=== PATIENT | male | born 1960 | race Caucasian/White ===

== ENCOUNTER 2016-04-12 11:14 | Outpatient (CLI) ==
[2016-04-12 11:28] LABS: BASOPHILS # (AUTO) 0.1 K/uL (0-0.2); BASOPHILS % (AUTO) 0.8 % (0.0-3.0); EOSINOPHILS # (AUTO) 0.1 K/ul (0.0-0.7); EOSINOPHILS % (AUTO) 1.5 % (0.0-7.0); HEMATOCRIT 44.6 % (42.0-52.0); HEMOGLOBIN 15.6 g/dl (14.0-18.0); IMMATURE GRANULOCYTE % (AUTO) 0.3 % (0.0-5.0); LYMPHOCYTES # (AUTO) 2.4 K/uL (0.60-3.4); LYMPHOCYTES % (AUTO) 27.3 (10.0-50.0); MEAN CORPUSCULAR VOLUME 82.9 fl (80.0-94.0); MONOCYTES # (AUTO) 0.8 K/uL (0.4-2.0); MONOCYTES % (AUTO) 9.3 (0-10); NEUTROPHILS # (AUTO) 5.3 K/ul (2.0-6.9); NEUTROPHILS % (AUTO) 60.8; PLATELET COUNT 370 10^3/uL (140-440); RED BLOOD COUNT 5.38 10^6/ul (4.70-6.10); WHITE BLOOD COUNT 8.72 K/ul (4.2-10.2)
[2016-04-12 11:50] LABS: ALBUMIN 3.7 g/dL (3.4-5.0); ALBUMIN/GLOBULIN RATIO 0.88; ANION GAP 13.3; BILIRUBIN,TOTAL 0.27 mg/dL (0.00-1.20); CALCIUM 9.7 mg/dL (8.2-10.2); CHOL/HDL RATIO 6.4 (4.5-6.4); POTASSIUM 4.3 mmol/L (3.5-5.1); TOTAL PROTEIN 7.9 g/dL (6.4-8.2)
--- NOTE | 2016-04-12 11:54 | DI ---
EXAM: Two views of the chest. History: Elevated blood pressure. Findings: Heart size is normal. No focal consolidation. No appreciable pleural fluid and no pneum othorax. No acute osseous abnormalities. Impression: No acute cardiopulmonary process.
== END 2016-04-12 11:15 | disposition home or self-care (01) ==
LOC: LAB 11:14
PROVIDERS: ATTEND Nurse Practitioner Family
DX: R73.09 Other abnormal glucose (principal); J40 Bronchitis, not specified as acute or chronic; R03.0 Elevated blood-pressure reading, without diagnosis of hypertension; R05 Cough
CPT/HCPCS: 36415; 80053; 80061; 83036; 85025; 93005; 93010

== ENCOUNTER 2016-04-18 06:20 | Outpatient (CLI) ==
--- NOTE | 2016-04-18 08:45 | STRESSECHO ---
Date of Test: 04/18/16 Reason for Exam: ABNORMAL EKG Ordering Physician: [facility] Current Medications: METFORMIN, ANTIBIOTIC Resting EKG: SINUS RHYTHM/NO ACUTE CHANGES Target Heart Rate: 141/166 STAGE MPH/GRADE HEART RATE BLOOD PRESSURE RHYTHM S-T SEGMENT +/- UP DOWN SYMPTOMS,COMMENTS At Rest 90 118/76 SR X NONE 1 1.7/10% 144 138/88 SR X NONE 2 2.5/12% 3 3.4/14% 4 4.2/16% 5 5.0/18% Immediately after 151 SR X MD STOPPED TEST Durations of Exercise: 3:20 Maximum Heart Rate Reached: 151 3 MIN POST EXERCISE--HR 105, BP 140/70, SINUS RHYTHM, +/- INTERPRETATION:98% OXYGEN SATURATION WITH EXERCISE ON ROOM AIR 1. INCONCLUSIVE PATIENT HAS ABNORMAL BASELINE EKG 2. NO CHEST PAIN OR CHEST DISCOMFORT 3. NO ARRHYTHMIAS 4. BLOOD PRESSURE RESPONSE ADEQUATE LEFT VENTRICULAR CONTRACTILITY--RESTING, MILDLY HYPOKINETIC LEFT VENTRICLE-- POST EXERCISE NORMAL LEFT VENTRICULAR CONTRACTILITY RECOMMEND: REGULAR 2 " D" "M" MODE ECHO AND STRESS ECHO SESTAMIBI (SCHEDULED FOR 04/21/16 @ 0645) CEDRICK
--- NOTE | 2016-04-19 13:01 | ECHOSTRESS ---
Date of Exam: 04/18/16 Ordering Physician: [facility] Reason for Echo: ABNORMAL EKG, DM2, DOBUTAMINE STRESS--INCONCLUSIVE M-Mode Normal Adult Results LV Dimensions Normal Adult Results AoV Opening excursions >1.6 LVEDD-base- 3.5-5.8 Ao root dimensions 2.0-3.7 LVESD-base- 3.1-4.6 L. Atrium dimensions 1.9-3.8 Post. Wall thickness 0.8-1.1 IV septum (thickness) 0.7-1.2 Post. Wall excursion 0.72-1.3 Septal motion Systolic motion R. Ventricular cavity 1.5-2.0 LVEF 60% Paradoxical septal wall motion 2-D: HYPOKINETIC SEPTAL WALL AT REST/NORMAL LEFT VENTRICLE CONTRACTILITY WITH DOBUTAMINE INFUSION M-MODE: MV: AV: TV: PV: CHAMBER SIZE: WALL MOTION: HYPOKINETIC SEPTAL WALL AT REST/NORMAL LEFT VENTRICLE CONTRACTILITY WITH DOBUTAMINE INFUSION PERICARDIUM: INTERPRETATION: 1. HYPOKINETIC SEPTAL WALL AT REST/NORMAL LEFT VENTRICLE CONTRACTILITY WITH DOBUTAMINE INFUSION MTDD
== END 2016-04-18 06:21 | disposition home or self-care (01) ==
LOC: CAR 06:20
PROVIDERS: ATTEND Nurse Practitioner Family
DX: E11.65 Type 2 diabetes mellitus with hyperglycemia (principal)

== ENCOUNTER 2016-04-21 06:39 | Outpatient (CLI) ==
--- NOTE | 2016-04-21 11:30 | NM ---
Cardiac Stress Test HISTORY: Abnormal EKG with anterior septal wall myocardial infarction and ischemia, sinus tachycard ia. COMPARISON: None of this type. TECHNIQUE: Resting: The patient was injected with 13.1 mCi of 99m technetium Sestamibi (Cardiolite) intravenou sly after which a "resting" SPECT study of the heart was performed. Stress: The patient was stressed using a Raymundo protocol and at the appropriate time injected with 3 3.6 mCi of 99m technetium Sestamibi (Cardiolite) after which a "stress" SPECT study of the heart was performed. Gated images of the heart were also obtained to assess wall motion and calculate ejectio n fraction. For details of the stress protocol employed, reference is made to the separate report o f the performing physician. FINDINGS: The stress perfusion images demonstrate decreased activity in the distal anteroseptal wal l extending to the apex. The resting perfusion images demonstrate no evidence of significant redist ribution/ischemia. The left ventricular ejection fraction (LVEF) is 59 %. The left ventricular wall motion was not evaluated. IMPRESSION: 1. Left ventricular myocardial perfusion demonstrates a region of myocardial infarction in the dist al anteroseptal wall extending to the apex. There is no additional evidence of ischemia. 2. The left ventricular ejection fraction (LVEF) is 59 %. 3. The left ventricular wall motion was not evaluated.
--- NOTE | 2016-04-24 10:09 | ECHO2D ---
Date of Exam: 04/21/16 Ordering Physician: MELVIN LUX/[place] Reason for Echo: ABNORMAL EKG, DM M-Mode Normal Adult Results LV Dimensions Normal Adult Results AoV Opening excursions >1.6 >1.6 LVEDD-base- 3.5-5.8 4.6 Ao root dimensions 2.0-3.7 3.5 LVESD-base- 3.1-4.6 L. Atrium dimensions 1.9-3.8 3.6 Post. Wall thickness 0.8-1.1 1.2 IV septum (thickness) 0.7-1.2 1.3 Post. Wall excursion 0.72-1.3 NORMAL Septal motion NORMAL Systolic motion R. Ventricular cavity 1.5-2.0 NORMAL LVEF 60% 52% Paradoxical septal wall motion NORMAL 2-D : NORMAL LEFT VENTRICULAR CONTRACTILITY--NORMAL VALVES--NO EFFUSION, NO THROMBUS-NORMAL LEFT VENTRICLE/LEFT ATRIAL SIZE M-MODE: MV: NORMAL AV: NORMAL TV: NORMAL PV: CHAMBER SIZE: NORMAL WALL MOTION: NORMAL PERICARDIUM: NORMAL INTERPRETATION: 1. LEFT VENTRICULAR HYPERTROPHY/STIFF LEFT VENTRICLE 2. NORMAL LEFT VENTRICULAR CONTRACTILITY 3. NORMAL VALVES MTDD
--- NOTE | 2016-04-24 10:18 | STECHOSEST ---
Date of Test: 04/21/16 Reason for Exam: INCONCLUSIVE STRESS TEST, ABNORMAL EKG Ordering Physician: MELVIN LUX/JULIO Current Medications: METFORMIN, ANTIBIOTIC Physical Findings: S1, S2, NO S3 Resting EKG: SINUS RHYTHM/NO ACUTE CHANGES Target Heart Rate: 141/166 STAGE MPH/GRADE HEART RATE BLOOD PRESSURE RHYTHM S-T SEGMENT UP DOWN SYMPTOMS, COMMENTS At Rest 87 116/72 SR X NONE 1 1.7/10% 139 186/100 SR X NONE 2 2.5/12% 3 3.4/14% 4 4.2/16% 5 5.0/18% Immediately after 150 206/102 SR X FATIGUE Total Time: 4:39 Maximum Heart Rate Reached: 150 Reason for Termination: FATIGUE 5 MIN POST EXERCISE, HR--92, BP-140/84, SR INTERPRETATION: 99% OXYGEN SATURATION ON ROOM AIR WITH EXERCISE/97% AT REST 1. INCONCLUSIVE FOR ISCHEMIC ST-T WAVE CHANGES 2. NO CHEST PAIN OR CHEST DISCOMFORT 3. NO ARRHYTHMIAS 4. BLOOD PRESSURE RESPONSE: HYPERTENSION WITH EXERCISE LEFT VENTRICULAR CONTRACTILITY--NORMAL RESTING AND POST EXERCISE BY ECHO MTDD
--- NOTE | 2016-04-24 10:21 | ECHOSTRESS ---
Date of Exam: 04/21/16 Ordering Physician: MELVIN LUX Reason for Echo: INCONCLUSIVE STRESS TEST M-Mode Normal Adult Results LV Dimensions Normal Adult Results AoV Opening excursions >1.6 LVEDD-base- 3.5-5.8 Ao root dimensions 2.0-3.7 LVESD-base- 3.1-4.6 L. Atrium dimensions 1.9-3.8 Post. Wall thickness 0.8-1.1 IV septum (thickness) 0.7-1.2 Post. Wall excursion 0.72-1.3 Septal motion Systolic motion R. Ventricular cavity 1.5-2.0 LVEF 60% Paradoxical septal wall motion 2-D: NORMAL LEFT VENTRICULAR CONTRACTILITY--RESTING AND POST EXERCISE M-MODE: MV: AV: TV: PV: CHAMBER SIZE: WALL MOTION: NORMAL LEFT VENTRICULAR CONTRACTILITY--RESTING AND POST EXERCISE PERICARDIUM: INTERPRETATION: 1.NORMAL LEFT VENTRICULAR CONTRACTILITY--RESTING AND POST EXERCISE MTDD
== END 2016-04-21 06:40 | disposition home or self-care (01) ==
LOC: CAR 06:39
PROVIDERS: ATTEND Internal Medicine
DX: I21.09 ST elevation (STEMI) myocardial infarction involving other coronary artery of anterior wall (principal); R00.0 Tachycardia, unspecified; E11.9 Type 2 diabetes mellitus without complications; I99.8 Other disorder of circulatory system; R94.31 Abnormal electrocardiogram [ECG] [EKG]; R94.39 Abnormal result of other cardiovascular function study

== ENCOUNTER 2016-05-25 13:54 | Outpatient (CLI) ==
[2016-05-25 15:17] VITALS: BMI 35.9
== END 2016-05-25 13:55 | disposition home or self-care (01) ==
LOC: DIETCN 13:54
PROVIDERS: ATTEND Nurse Practitioner Family
DX: E11.9 Type 2 diabetes mellitus without complications (principal)
CPT/HCPCS: 97802

== ENCOUNTER 2016-08-09 06:22 | Outpatient (CLI) ==
[2016-08-09 06:50] LABS: ALBUMIN 3.9 g/dL (3.4-5.0); ANION GAP 14.2; BILIRUBIN,TOTAL 0.5 mg/dL (0.00-1.20); BUN/CREATININE RATIO 16.49; CHOL/HDL RATIO 4.6 (4.5-6.4); CREATININE 0.97 mg/dL (0.60-1.10); POTASSIUM 4.2 mmol/L (3.5-5.1); TOTAL PROTEIN 7.8 g/dL (6.4-8.2)
== END 2016-08-09 06:23 | disposition home or self-care (01) ==
LOC: LAB 06:22
PROVIDERS: ATTEND Nurse Practitioner Family
DX: E78.5 Hyperlipidemia, unspecified (principal); E11.9 Type 2 diabetes mellitus without complications
CPT/HCPCS: 36415; 80053; 80061; 83036

== ENCOUNTER 2016-12-08 12:34 | Outpatient (CLI) ==
[2016-12-08 12:50] LABS: BASOPHILS # (AUTO) 0.1 K/uL (0-0.2); BASOPHILS % (AUTO) 0.9 % (0.0-3.0); EOSINOPHILS # (AUTO) 0.2 K/ul (0.0-0.7); EOSINOPHILS % (AUTO) 2.5 % (0.0-7.0); HEMATOCRIT 41.2 % (42.0-52.0); HEMOGLOBIN 14.5 g/dl (14.0-18.0); IMMATURE GRANULOCYTE % (AUTO) 0.2 % (0.0-5.0); LYMPHOCYTES # (AUTO) 2.1 K/uL (0.60-3.4); LYMPHOCYTES % (AUTO) 23.5 (10.0-50.0); MEAN CORPUSCULAR HEMOGLOBIN 29.2 pg (27.0-31.0); MEAN CORPUSCULAR HGB CONC 35.2 (31.8-35.4); MEAN CORPUSCULAR VOLUME 82.9 fl (80.0-94.0); MONOCYTES # (AUTO) 0.9 K/uL (0.4-2.0); MONOCYTES % (AUTO) 10.2 (0-10); NEUTROPHILS # (AUTO) 5.7 K/ul (2.0-6.9); NEUTROPHILS % (AUTO) 62.7; PLATELET COUNT 358 10^3/uL (140-440); RED BLOOD COUNT 4.97 10^6/ul (4.70-6.10); WHITE BLOOD COUNT 9.11 K/ul (4.2-10.2)
[2016-12-08 13:02] LABS: ALBUMIN 3.9 g/dL (3.4-5.0); ALBUMIN/GLOBULIN RATIO 1.05; ANION GAP 21.3; BILIRUBIN,TOTAL 0.44 mg/dL (0.00-1.20); BUN/CREATININE RATIO 17.72; CALCIUM 9.1 mg/dL (8.2-10.2); CREATININE 0.79 mg/dL (0.60-1.10); POTASSIUM 4.3 mmol/L (3.5-5.1); TOTAL PROTEIN 7.6 g/dL (6.4-8.2)
== END 2016-12-08 12:35 | disposition home or self-care (01) ==
LOC: LAB 12:34
PROVIDERS: ATTEND Nurse Practitioner Family
DX: E11.9 Type 2 diabetes mellitus without complications (principal); E78.5 Hyperlipidemia, unspecified; I10 Essential (primary) hypertension
CPT/HCPCS: 36415; 80053; 80061; 83036; 85025

== ENCOUNTER 2017-07-05 12:53 | Outpatient (CLI) | END 2017-07-05 12:54 | disposition home or self-care (01) | LOC: FCC-LAB 12:53 | PROVIDERS: ATTEND Nurse Practitioner Family | DX: E11.9 Type 2 diabetes mellitus without complications (principal); I10 Essential (primary) hypertension; E78.5 Hyperlipidemia, unspecified; Z12.5 Encounter for screening for malignant neoplasm of prostate | CPT/HCPCS: 36415; 80053; 80061; 83037; 85025 ==

== ENCOUNTER 2017-10-12 09:52 | Outpatient (CLI) | END 2017-10-12 09:53 | disposition home or self-care (01) | LOC: FCC-LAB 09:52 | PROVIDERS: ATTEND Nurse Practitioner Family | DX: E11.9 Type 2 diabetes mellitus without complications (principal); I10 Essential (primary) hypertension; E78.5 Hyperlipidemia, unspecified | CPT/HCPCS: 36415; 80053; 80061; 83036; 85025 ==

== ENCOUNTER 2017-10-16 09:23 | Outpatient (CLI) | END 2017-10-16 09:24 | disposition home or self-care (01) | LOC: FCC-LAB 09:23 | PROVIDERS: ATTEND Family Medicine | DX: E11.9 Type 2 diabetes mellitus without complications (principal) | CPT/HCPCS: 82043 ==

== ENCOUNTER 2018-02-06 08:22 | Emergency (ER) ==
[2018-02-06] MEDS ORDERED: ASPIRIN CHEWABLE PO STA (08:26)
[2018-02-06] MEDS ORDERED: ZOFRAN 4 MG/2 ML IVP STA (08:27)
[2018-02-06] MEDS ORDERED: MORPHINE 2 MG/ML SYRINGE IVP STA (08:27)
[2018-02-06 08:36] VITALS: BP 143/102; TEMP 98.3; BMI 37.1
--- NOTE | 2018-02-06 08:43 | DI ---
EXAM: Single view of the chest. History: Chest pain. Comparison: Chest radiograph 04/12/2016 Findings: Heart size is normal. No focal consolidation. No appreciable pleural fluid and no pneumo thorax. No acute osseous abnormalities. Impression: No acute cardiopulmonary process
--- NOTE | 2018-02-06 08:43 | ED.PDOC ---
General ED Provider: Dr. CARLENE ROJO Chief Complaint: Chest Pain Stated Complaint: acute chest pain Time Seen by Physician: 08:24 (seen with Ash mahoney, c/o left shoulder 10/ 10 pain) Information Source: Patient Exam Limitations: No limitations Primary Care Provider: GUSTAVO TORRES Nursing and Triage Documentation Reviewed and Agree: Yes Does patient meet sepsis criteria?: No System Inflammatory Response Syndrome: Not Applicable Sepsis Protocol: For patient's 13 years and over: Temp is 96.8 and below OR 101 and greater Pulse >90 BPM Resp >20/minute Acutely Altered Mental Status Are patient's symptoms suggestive of a new infection, such as: -Pneumonia -Skin, Soft Tissue -Endocarditis -UTI -Bone, Joint Infection -Implantable Device -Acute Abdominal Infection -Wound Infection -Meningitis -Blood Stream Catheter Infection -Unknown Cardiovascular Complaint Exam - Chest Pain Complaint/Exam Onset: Sudden (THIS PAIN DOES NOT RADIATE BETWEEN SHOULDERS) Duration: 3 am but about 08:30 am became 10/10 at rest Symptoms Are: Still present Timing: Constant Length of Chest Pain Episodes: 5 hr Initial Severity: Moderate Current Severity: Severe Location: Reports: Left anterior Pain Radiates: Reports: Left shoulder, Neck Character: Reports: Tightness Aggravating: Reports: None Alleviating: Reports: Oxygen (morphine , asprin (3 given) 1 was taken at home ) Associated Signs and Symptoms: Denies: Diaphoresis, Nausea, Vomiting, Fever, Palpitations, Cough, Hemoptysis, Back pain, Abdominal pain, Dizziness, Short of air, Calf pain, Calf swelling Related History: Reports: Similar episode (NH) Related Surgical History: Reports: None History of Healthcare-Acquired Pneumonia: Reports: No AMI/ACS Risk Factors: Reports: Sedentary, Diabetes, Obesity, Hypertension, Dyslipidemia TAD Risk Factors: Reports: Hypertension Pulmonary Embolism Risk Factors: Reports: None Prior Care for this Complaint: Yes Recent Stress Test: No Recent Echo/LV Function: No JVD Present: No Subcutaneous Emphysema Present: No Diminshed Breath Sounds: No Reproducible Chest Wall Pain: No Bilateral Pulses Present: Yes Unequal Pulses Noted: No Chest Picture: 1 - pain distribution If Risk Factors for AMI/ACS Consider: EKG, Cardiac Enzymes Documents Reviewed: Labs Bulb Inspector Consulted: Yes Differential Diagnoses: Unstable Angina Quality Indicators For Acute NH or Cardiac Chest Pain: EKG in 10min. Quality Indicator For Non-Traumatic Chest Pain/Syncope: EKG Performed Review of Systems - Review Of Systems Constitutional: Reports: No symptoms Eyes: Reports: No symptoms Ears, Nose, Mouth, Throat: Reports: No symptoms Respiratory: Reports: No symptoms Cardiac: Reports: Chest pain GI: Reports: No symptoms : Reports: No symptoms Musculoskeletal: Reports: No symptoms Skin: Reports: No symptoms Neurological: Reports: No symptoms Endocrine: Reports: No symptoms Hematologic/Lymphatic: Reports: No symptoms All Other Systems: Reviewed and Negative Past Medical History - Past Medical History Previously Healthy: No Endocrine: Reports: Dyslipidemia Cardiovascular: Reports: NH, Hypertension, Angina Respiratory: Reports: None Hematological: Reports: None Gastrointestinal: Reports: None Genitourinary: Reports: None Neuro/Psych: Reports: None Musculoskeletal: Reports: None Cancer: Reports: None - Surgical History General Surgical History: Reports: None - Family History Family History: Reports: None - Social History Smoking Status: Former smoker Hx Substance Use: No Physical Exam - Physical Exam Appearance: Well-appearing, No pain distress, Well-nourished Eyes: JUAN DANIEL, EOMI, Conjunctiva clear ENT: Ears normal, Nose normal, Oropharynx normal Respiratory: Airway patent, Breath sounds clear, Breath sounds equal, Respirations nonlabored Cardiovascular: RRR, Pulses normal, No rub, No murmur GI/: Soft, Nontender, No masses, Bowel sounds normal, No Organomegaly Musculoskeletal: Normal strength, ROM intact, No edema, No calf tenderness Skin: Warm, Dry, Normal color Neurological: Sensation intact, Motor intact, Reflexes intact, Cranial nerves intact, Alert, Oriented Psychiatric: Affect appropriate, Mood appropriate Interpretation - Radiology Interpretation Radiology Interpretation By: Radiologist Radiology Results: No acute changes Exam Interpreted: CXR Xray Comments: OFFICIAL REPORT - Operations Team Leader Rate: Tachy Rhythm: Sinus - EKG Interpretation Rate: Tachy Rhythm: Sinus (ST) [place]: Left (L.B.B.B) ST Segment: Other (ST ELEVATION LEADS II, III, AVF , ST DEP IN AVL) Re-Evaluation - Re-Evaluation Time of Re-Evaluation: 09:00 Status: Improved Vital Signs Stable: Yes Pain Level: 2/10 Appearance: NAD Lungs: Clear Skin: Warm and Dry Neuro: Alert and Oriented X3 CV: RRR Additional Comments: REPEAT EKG PENDING TRANSFER ARRANGED Physician Notification - Case Discussed Physician Notified: MATTY Shelby Time of Notification: 08:50 Critical Care Note - Critical Care Note Total Time (mins): 60 Course - Course Orders, Labs, Meds: Orders Category Date Time Status EKG-(ED ONLY) Stat CARDIO 02/06/18 08:25 Ordered EKG-(ED ONLY) Stat CARDIO 02/06/18 09:00 Ordered ED IV/MEDIPORT/POWERPORT .ONCE EMERGENCY 02/06/18 08:25 Active CBC W/ AUTO DIFF Stat LAB 02/06/18 08:30 Received COMPREHENSIVE METABOLIC PANEL Stat LAB 02/06/18 08:30 Received CREATINE KINASE Stat LAB 02/06/18 08:30 Received PARTIAL THROMBOPLASTIN TIME Stat LAB 02/06/18 08:30 Received PT WITH INR Stat LAB 02/06/18 08:30 Received TROPONIN I Stat LAB 02/06/18 08:30 Received 0.9 % Sodium Chloride [Saline Flush] MEDS 02/06/18 08:24 Ordered 1 syr IVF PRN PRN Aspirin [Aspirin Chewable] MEDS 02/06/18 08:26 Discontinued 243 mg PO ONCE STA Morphine Sulfate [Morphine 2 mg/ml Syringe] MEDS 02/06/18 08:27 Discontinued 4 mg IVP ONCE STA Ondansetron HCl/Pf [Zofran 4 mg/2 ml] MEDS 02/06/18 08:27 Discontinued 4 mg IVP ONCE STA CHEST, 1V AP ONLY Stat RADS 02/06/18 08:25 Ordered Medications Generic Name Dose Route Start Last Admin Trade Name Freq PRN Reason Stop Dose Admin Sodium Chloride 1 syr 02/06/18 08:24 02/06/18 08:39 Saline Flush IVF 1 syr PRN PRN Administration To flush IV Discontinued Medications Generic Name Dose Route Start Last Admin Trade Name Freq PRN Reason Stop Dose Admin Aspirin 243 mg 02/06/18 08:26 02/06/18 08:36 Aspirin Chewable PO 02/06/18 08:27 243 mg ONCE STA Administration Morphine Sulfate 4 mg 02/06/18 08:27 02/06/18 08:35 Morphine 2 Mg/Ml Syringe IVP 02/06/18 08:28 4 mg ONCE STA Administration Ondansetron HCl 4 mg 02/06/18 08:27 02/06/18 08:36 Zofran 4 Mg/2 Ml IVP 02/06/18 08:28 4 mg ONCE STA Administration Vital Signs: Temp Pulse Resp BP Pulse Ox 02/06/18 08:24 98.3 F 109 H 24 143/102 H 96 VILLA Risk Score Age >/= 65: No >/= 3 CAD Risk Factors: Yes Known CAD (Stenosis >/= 50%): Yes ASA Use in Past 7 Days: Yes Severe Angina (>/= 2 episodes in 24 hours): Yes EKG ST Changes >/= 0.5mm: Yes VILLA Total Score: 5 VILLA Risk Score: Risk Score Odds of by 30D 0 0.1 (0.1-0.2) 1 0.3 (0.2-0.3) 2 0.4 (0.3-0.5) 3 0.7 (0.6-0.9) 4 1.2 (1.0-1.5) 5 2.2 (1.9-2.6) 6 3.0 (2.5-3.6) 7 4.8 (3.8-6.1) Departure - Departure Time of Disposition: 09:00 Disposition: TSF SHORT-TRM HOSP Discharge Problem: Chest pain Acute NH Qualifiers: Myocardial infarction type: ST elevation myocardial infarction Involved coronary artery: unspecified coronary artery Qualified Code(s): I21.3 - ST elevation (STEMI) myocardial infarction of unspecified site Instructions: Angina (ED) Condition: Good Pt referred to PMD for follow-up: Yes ([facility]) IPMP verified?: No Allergies/Adverse Reactions: Allergies NSAIDS (Non-Steroidal Anti-Inflamma Allergy (Unverified 01/08/17 09:57) Palpitations Speech Therapy Teacher does not want patient to use NSAIDS. Home Medications: Ambulatory Orders Nitroglycerin 0.4 mg PO PRN 05/12/16 Disposition Discussed With: Patient
== END 2018-02-06 09:08 | disposition short-term general hospital (02) ==
LOC: ED 08:22
DX: I21.3 ST elevation (STEMI) myocardial infarction of unspecified site (principal); E11.9 Type 2 diabetes mellitus without complications; E78.5 Hyperlipidemia, unspecified; I10 Essential (primary) hypertension; E66.9 Obesity, unspecified; I25.2 Old myocardial infarction; R07.9 Chest pain, unspecified; R53.1 Weakness
CPT/HCPCS: 36415; 80053; 82550; 84484; 85025; 85610; 85730; 93005; 93010; 96374; 96375; 99285

== ENCOUNTER 2018-07-22 07:54 | Outpatient (CLI) | END 2018-07-22 07:55 | disposition home or self-care (01) | LOC: RHC-LAB 07:54 | PROVIDERS: ATTEND Nurse Practitioner Family | DX: E11.9 Type 2 diabetes mellitus without complications (principal); I10 Essential (primary) hypertension; E78.2 Mixed hyperlipidemia; Z12.5 Encounter for screening for malignant neoplasm of prostate | CPT/HCPCS: 36415; 80053; 80061; 83036; 85025 ==